=== PATIENT | female | born 1980 | race Caucasian/White ===

== ENCOUNTER 2021-04-08 06:15 | Inpatient (IN) | payer OTHER ==
[2021-04-08] MEDS ORDERED: ELECTROLYTE-148 SOLN 1,000 ML IV SCH ×2 (06:50→07:30)
[2021-04-08 07:01] VITALS: BMI 23.6
[2021-04-08] MEDS ORDERED: ELECTROLYTE-148 SOLN 1,000 ML IV ONE (07:30)
[2021-04-08] MEDS ORDERED: CITRIC ACID/SODIUM CITRATE 30 ML UNIT-DOSE CUP PO ONE (07:30)
[2021-04-08] MEDS ORDERED: morphine SULFATE/PF 0.5 MG/ML (2cc Syringe - QUVA) ONE (08:11)
[2021-04-08] MEDS ORDERED: SODIUM CHLORIDE 0.9% P/F 10 ML VIAL IJ ONE (09:14)
[2021-04-08] MEDS ORDERED: ceFAZolin SODIUM 1 GM VIAL ONE (09:14)
[2021-04-08] MEDS ORDERED: OXYTOCIN 10 UNITS/ML VIAL ONE (09:14)
[2021-04-08] MEDS ORDERED: KETOROLAC TROMETHAMINE 30 MG/1 ML VIAL ONE (09:14)
[2021-04-08] MEDS ORDERED: ONDANSETRON 4 MG/2 ML VIAL ONE (09:14)
[2021-04-08] MEDS ORDERED: SENNOSIDES/DOCUSATE COMBO (SENNA PLUS) TABLET (UD) PO PRN (09:23)
[2021-04-08] MEDS ORDERED: ONDANSETRON 4 MG/2 ML VIAL IVPB PRN (09:23)
[2021-04-08] MEDS ORDERED: OXYTOCIN 20 UNITS in 0.9% NS 20 UNIT/1,000 ML INFUS.BAG IV SCH (09:30)
[2021-04-08] MEDS: IBUPROFEN 800 MG/8 ML IJ IVPB PRN ×2 (12:43→20:26)
[2021-04-08] MEDS: ACETAMINOPHEN 1000 MG/100 ML VIAL (NON FORMULARY) IVPB SCH ×2 (17:12→23:33)
[2021-04-08] MEDS: CEFAZOLIN 1 GM/D5W 1 GM/50 ML BAG IVPB SCH ×3 (18:38→19:14)
[2021-04-09] MEDS: CEFAZOLIN 1 GM/D5W 1 GM/50 ML BAG IVPB SCH (02:47)
[2021-04-09] MEDS: IBUPROFEN 800 MG/8 ML IJ IVPB PRN (03:53)
[2021-04-09] MEDS: ACETAMINOPHEN 1000 MG/100 ML VIAL (NON FORMULARY) IVPB SCH (05:53)
[2021-04-09] MEDS: ACETAMINOPHEN 325 MG TABLET (FP) PO PRN ×3 (05:54→17:20)
[2021-04-09] MEDS: oxyCODONE HCL 5 MG TABLET PO PRN ×2 (07:29→21:40)
[2021-04-09] MEDS ORDERED: BISACODYL 10 MG SUPP.RECT RC PRN (09:23)
[2021-04-09 09:27] LABS: BASO % 0.4 % (0-2.0); EOS % 0.4 % (0-4.5); HEMATOCRIT 29.1 % (32.4-45.2); HEMOGLOBIN 10.3 GM/dL (10.7-15.3); LYMPH % 9.6 % (8-40); MCHC 35.4 g/dl (32.0-36.0); MEAN CELL VOLUME 98.8 fl (80-96); MEAN PLT VOLUME 9.1 fl (7.5-11.1); MONO % 7.7 % (3.8-10.2); NEUT % 81.9 % (42.8-82.8); PLATELET COUNT 175 K/MM3 (134-434); RBC 2.95 M/mm3 (3.60-5.2); RDW 12.8 % (11.6-15.6); WHITE BLOOD COUNT 9.1 K/mm3 (4.0-10.0)
[2021-04-09] MEDS: IBUPROFEN 600 MG TABLET (FP) PO PRN ×3 (11:21→21:35)
[2021-04-09] MEDS: SIMETHICONE 80 MG TAB.CHEW (FP) PO PRN (21:41)
[2021-04-10] MEDS: ACETAMINOPHEN 325 MG TABLET (FP) PO PRN ×3 (06:56→18:01)
[2021-04-10] MEDS: SIMETHICONE 80 MG TAB.CHEW (FP) PO PRN ×3 (06:57→18:01)
[2021-04-10] MEDS: IBUPROFEN 600 MG TABLET (FP) PO PRN ×3 (06:57→18:01)
[2021-04-10] MEDS: oxyCODONE HCL 5 MG TABLET PO PRN (19:28)
[2021-04-11] MEDS: IBUPROFEN 600 MG TABLET (FP) PO PRN ×3 (00:51→12:28)
[2021-04-11] MEDS: ACETAMINOPHEN 325 MG TABLET (FP) PO PRN ×2 (00:52→08:16)
[2021-04-11] MEDS: oxyCODONE HCL 5 MG TABLET PO PRN ×2 (02:30→12:27)
[2021-04-11] MEDS: SIMETHICONE 80 MG TAB.CHEW (FP) PO PRN ×2 (08:15→12:27)
[2021-04-11 10:06] VITALS: BP 104/65; PULSE 69; TEMP 98.8
== END 2021-04-11 14:45 | disposition home or self-care (01) | DRG 787 ==
LOC: JLDR 06:15 → J3W 11:15
PROVIDERS: ADMIT Specialist; ATTEND Specialist
PROC: 10D00Z1 Extraction of Products of Conception, Low, Open Approach (ICD-10-PCS; principal; 2021-04-08)
DX: O36.5993 Maternal care for other known or suspected poor fetal growth, unspecified trimester, fetus 3 (principal); T80 Complications following infusion, transfusion and therapeutic injection; R76.0 Raised antibody titer; Z3A.38 38 weeks gestation of pregnancy; Z37.0 Single live birth
CPT/HCPCS: 36415; 85025; 88307-TC; J0131